=== PATIENT | female | born 1995 | race Caucasian/White ===

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

== ENCOUNTER 2017-11-05 16:23 | Outpatient (CLI) | payer BC | END 2017-11-05 16:24 | LOC: LAB 16:23 | PROVIDERS: ATTEND Physician Assistant | DX: Z00.00 Encounter for general adult medical examination without abnormal findings (principal) | CPT/HCPCS: 36415; 86787 ==